=== PATIENT | female | born 1990 | race Caucasian/White ===

== ENCOUNTER 2021-06-08 17:15 | Emergency (ER) | payer OTHER, SELFPAY ==
[2021-06-08 17:25] VITALS: BP 133/85; PULSE 83; RESP 16; TEMP 36.7; O2SAT 99
--- NOTE | 2021-06-08 17:42 | ED.SKABFB ---
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 Patient states she has a shorter 2-day history of left ear discomfort with redness swelling of the top of the helix that she is thought was a unwitnessed insect bite .. This is associated with definite lymphadenopathy; no fever, discharge, abscess/induration, streaking prior/other rashes [she does have acne facial rash history]. And discussed will provide dual antibiotic therapy for both routine cellulitis as well as [Pseudomonas associated] perichondritis. Related Data Allergies Allergy/AdvReac Type Severity Reaction Status Date / Time No Known Allergies Allergy Verified 06/08/21 17:39 Review of Systems Review of Systems: General/Constitutional: No weight loss,fever Eyes: N0: Redness,discharge Ears/Nose/Throat: No: Epistaxis,ear discharge Respiratory: Denies: Hemoptysis Gastrointestinal: No Vomiting, Bleeding-rectal Skin: No Lumps, REPORTS eruption Neurologic: No Focal Weakness,Sz Hematologic: Denies: Petechiae/Purpura Psychiatric: No: Suicida ideationl All Other Systems: Reviewed and Negative PMFSH Comments At time of signature, agree with nursing past medical, surgical, social and family history. There is no relevant family history pertinent to the presenting complaint Exam Narrative: General Appearance: Well appearing, Well nourished, No distress EYE: PERRLA , EOMI Ears: Left ear with pink, warm, slightly swollen superior helix; , Auditory canal normal Nose: Normal nose, Nares clear Mouth/Throat: Normal appearing, Normal lips, Supple, left anterior cervical adenopathy Respiratory: Airway patent, No respiratory distress Skin: Warm, Dry Neurological: A&O x3, , Normal affect Course Vital Signs Vital signs: Vital Signs Temperature 98.0 F 06/08/21 17:25 Pulse Rate 83 06/08/21 17:25 Respiratory Rate 16 06/08/21 17:25 Blood Pressure 133/85 06/08/21 17:25 Pulse Oximetry 99 06/08/21 17:25 Temperature 98.0 F 06/08/21 17:25 Pulse Rate 83 06/08/21 17:25 Respiratory Rate 16 06/08/21 17:25 Blood Pressure 133/85 06/08/21 17:25 Pulse Oximetry 99 06/08/21 17:25 Discharge Plan Discharge Clinical Impression: Perichondritis Patient Disposition: Home, Self-Care Condition: Stable Instructions: Antibiotic Form, Cellulitis (ED) Additional Instructions: Return if worsens per handout on perichondritis, celluitis Prescriptions: New ciprofloxacin HCl [Cipro] 500 mg tablet 500 mg PO Q12H Qty: 14 RF: 0 cephalexin 500 mg capsule 1,000 mg PO Q12H 7 Days Qty: 28 RF: 0 mupirocin 2 % ointment 1 applic TOPICAL TID Qty: 30 RF: 0 Follow-up/Referrals: UNKNOWN,DOCTOR [Primary Care Provider] -
== END 2021-06-08 17:52 | disposition home or self-care (01) ==
PROVIDERS: Emergency Provider Emergency Medicine
DX: H61.002 Unspecified perichondritis of left external ear (principal)
CPT/HCPCS: 99203; G0463